=== PATIENT | female | born 1960 | race Caucasian/White ===

== ENCOUNTER 2018-06-15 14:21 | Inpatient (IN) ==
[2018-06-15] MEDS ORDERED: SODIUM CHLORIDE 0.9% 1000ML 500 ML IV ONE (14:39)
--- NOTE | 2018-06-15 14:49 | Emergency Department Note ---
ED Provider Note CHIEF COMPLAINT: Left leg pain/swelling, chest pain HISTORY OF PRESENTING ILLNESS: This is a 58-year-old female with past medical history significant for breast cancer on tamoxifen, who presents to the emergency department with complaint of progressively worsening left leg pain and swelling over the past 2 weeks, and it has gotten significantly worse since yesterday. She states she initially started with a sore spot on her lower leg, she had an ultrasound on 05/31 that did not show any signs of a blood clot. Her doctor told her that she had an inflamed varicose vein and started her on steroids, however she states that she has not gotten any better. The pain and swelling have gotten worse, and she has a red streak going up the inside of the thigh that is warm to the touch, she rates the pain in her leg is 5/10. She denies any fevers or chills. She reports that today when she woke up she noticed that she was having some left-sided chest pain which has been constant, hurts with taking a deep breath, and she rates this as 6/10. She denies any shortness of breath, cough, hemoptysis, dizziness or syncope. She does not take any blood thinners and denies any history of blood clots. She denies any recent long travel or injury to the leg. She denies any other symptoms of headaches, vision changes, neck pain, back pain, abdominal pain, nausea/vomiting, numbness or weakness of the extremities, urinary symptoms, or unusual rash. REVIEW OF SYSTEMS: A complete 10 point review of systems was reviewed with the patient with pertinent positives and negatives as per history of present illness. All else were negative. PAST MEDICAL HISTORY: Breast cancer, status post partial mastectomy of the left breast, status post radiation therapy in October 2017 SOCIAL HISTORY: Lives at home with her , denies tobacco use ALLERGIES: No known allergies PHYSICAL EXAM: CONSTITUTIONAL: Pleasant and cooperative. No acute distress. Well appearing and well nourished. HEENT: Normocephalic, atraumatic. PERRL, EOMI. Pharynx normal. Moist mucous membranes. NECK: Supple, full active range of motion without discomfort. No cervical adenopathy. RESPIRATORY: Slightly diminished in the bases, but otherwise clear to auscultation bilaterally with no wheezing, crackles, rhonchi or stridor. Equal expansion bilaterally. CARDIOVASCULAR: Regular rate and rhythm with no murmurs, rubs or gallops. Normal peripheral perfusion, 2+ distal pulses in all 4 extremities. Edema of the left lower extremity. GASTROINTESTINAL: Soft, nontender, nondistended. No palpable masses or HSM. Bowel sounds present in all quadrants. MUSCULOSKELETAL: Swelling, tenderness, and erythema noted to the left leg. There is an area of erythema and warmth along the left inner thigh, tender to palpation. Full range of motion of all joints without discomfort. INTEGUMENTARY: No rash or other significant dermatologic conditions noted. NEUROLOGIC: Alert and oriented X 4 with normal affect. Normal strength and sensation in all 4 extremities. Normal speech. Normal gait observed. ED COURSE AND MEDICAL DECISION MAKING: CC: Patient presenting with complaint of left leg pain/swelling, chest pain DIFFERENTIAL DIAGNOSIS: Includes, but not limited to DVT, superficial venous thrombophlebitis, cellulitis, musculoskeletal sprain/strain, pulmonary embolism, acute coronary syndrome, costochondritis, pleuritis, pneumonia, among others. INTERPRETATION OF LABS: No leukocytosis, no anemia, normal platelets, no significant electrolyte abnormalities, normal renal function,, normal liver enzymes and lipase. Negative troponin. Coagulation factors pending IMAGING: XR chest 1V portable CLINICAL HISTORY: Left-sided chest pain. COMPARISON STUDY: PET/CT September 24, 2017. FINDINGS: Lung volumes are normal. Lungs are clear. There is no pneumothorax or pleural effusion. There is no evidence for pulmonary edema. Cardiac size is normal. Mediastinal contours are normal. IMPRESSION: No acute cardiopulmonary findings. ----- CT ANGIOGRAPHY OF THE CHEST, PULMONARY EMBOLUS PROTOCOL CLINICAL HISTORY: left chest pain, ?dvt, eval PE COMPARISON STUDY: Chest radiograph performed earlier today. PET/CT September 24, 2017. TECHNIQUE: Following IV administration of 103 mL of Optiray-320, helical axial images of the chest were obtained utilizing the pulmonary embolus protocol. Maximal intensity projections and sagittal and coronal reformats were viewed on an independent 3D workstation. IV contrast was administered without complication. Automated exposure control was utilized for the study. A dose lowering technique was utilized adhering to the principles of ALARA. CT DOSE: 336.80 mGy.cm FINDINGS: There are are multiple emboli within segmental arteries of both lungs, including the lingula, anterior segment of the right upper lobe, right middle lobe, lateral basilar segment of the right lower lobe and posterior basilar segment of the right lower lobe. There is no central pulmonary embolus. No CT evidence for right heart strain. There is no pulmonary infarct. No pneumothorax or pleural effusion is noted. There are no suspicious pulmonary nodules. No consolidation to suggest pneumonia is present. There are post surgical findings within the left breast with left breast thickening. This is likely post therapeutic. No enlarged axillary, mediastinal or hilar lymph nodes are present. There are no suspicious osseous lesions within the bony thorax. Upper abdomen is unremarkable. IMPRESSION: 1. Multiple segmental pulmonary emboli within the lungs, as described above. No CT evidence for right heart strain. No pulmonary infarct. 2. Postsurgical findings within the left breast. No evidence of metastatic disease within the chest. ----- LEFT LOWER EXTREMITY VENOUS DOPPLER CLINICAL HISTORY: swelling, pain, red, eval DVT COMPARISON STUDY: No previous studies for comparison. TECHNIQUE: Sonography of the deep venous system of the left lower extremity was performed. Compression and augmentation were evaluated. FINDINGS: The left common femoral, superficial femoral and popliteal veins were compressible. Augmentation was normal. Flow was shown within the deep calf vessels. Note is made of superficial occlusive thrombus within the left greater saphenous vein that extends to the level of the mid to distal thigh. This extends for approximately 8 cm. This is not within 5 cm of the saphenofemoral junction. IMPRESSION: 1. Superficial thrombus within the left greater saphenous vein. Clot extends for approximately 8 cm. 2. No evidence of deep venous thrombus within the left lower extremity. EKG: Shows normal sinus rhythm with a rate of 69 bpm, normal axis, normal intervals, no ST or T wave abnormalities, no ectopy by my interpretation. No previous EKG available for comparison. MEDICATION RECONCILIATION: I attest that I have personally reviewed the patient's current medication list. INITIAL VITAL SIGNS REVIEW: I reviewed the patient's initial vital signs and interpret them as follows: T: Afebrile; BP: Hypertensive; HR: Within normal limits; RR: Within normal limits; Pulse Ox: Within normal limits on room air. Blood pressure screening: The patient was found to have an elevated blood pre ssure and was referred to the inpatient team for further management. MDM SUMMARY: Patient was evaluated at bedside, history and physical exam performed. Patient is alert and oriented, in no acute distress, resting calmly in the stretcher. Lungs are slightly diminished in the bases, but otherwise clear. No abnormal heart sounds. Moderate swelling noted to the left calf and thigh, tenderness to palpation of the posterior calf and medial thigh. There is an area of erythema along the inner left thigh, warm to the touch and tender to palpation. EKG reviewed at bedside, noting normal sinus rhythm with no acute ischemic changes. Orders were placed at bedside for labs, IV fluid bolus for hydration as a precaution, venous ultrasound of the left lower extremity to evaluate for DVT, chest x-ray, CTA chest to evaluate for PE. The patient was offered something for pain, she declines at this time. Patient discussed with Dr. Livingston, who agrees with my assessment, plan, and disposition. Labs and imaging reviewed as above, labs are unremarkable. Negative troponin. CTA of the chest shows multiple segmental pulmonary emboli within the lungs. Ultrasound of the left leg shows an 8 cm superficial thrombus within the left greater saphenous vein, but no DVT. I spoke on the phone with JEFFREY Tompkins, [facility] hospitalist, who agrees to evaluate the patient for admission. Hypercoagulability lab workup initiated. Subcutaneous Lovenox 1 mg/kg was ordered per recommendation of the hospitalist team. Patient reassessed multiple times throughout ED stay, she has remained hemodynamically stable and afebrile, and appears comfortable. The patient and her were updated on all results and plan for admission, they verbalized understanding and were agreeable to this plan. The patient was stable at time of admission. The chart was completed utilizing [employer] voice recognition software. Grammatical errors, random word insertions, pronoun errors, and incomplete sentences are an occasional consequence of this system due to software limitations, ambient noise, and hardware issues. Any formal questions or concerns about the content, text, or information contained within the body of this dictation should be directly addressed to the nurse practitioner for clarification. Impression & Plan Multiple pulmonary emboli, Acute superficial venous thrombosis of left lower extremity Past Med/Surg History Social History Preferred Language: Romanian Beliefs That Will Affect Care: None Feels Safe at Home: Yes Smoking Status: Never smoker Results & Data Vital Signs Vital Signs - 24 hr 06/15/18 14:24 06/15/18 15:10 06/15/18 15:35 Temperature 36.5 C Temperature Source Oral Sepsis Recent Fever Within 48 Hours No Sepsis New/Unexplained Change in Mental Status No Sepsis Action Taken by Nursing No Action Required Pulse Rate 77 64 Pulse Rate [Apical] 74 Pulse Rate from SpO2 Sensor 74 Respiratory Rate 18 18 19 Respiratory Depth Normal Blood Pressure 138/83 138/77 Blood Pressure [Right Arm] 138/77 Blood Pressure Mean 101 97 Blood Pressure Mean [Right Arm] 97 Pulse Oximetry 98 100 Oxygen Delivery Method Room Air Room Air 06/15/18 15:36 06/15/18 16:54 06/15/18 16:55 Temperature Temperature Source Sepsis Recent Fever Within 48 Hours Sepsis New/Unexplained Change in Mental Status Sepsis Action Taken by Nursing Pulse Rate 66 Pulse Rate [Apical] Pulse Rate from SpO2 Sensor 74 61 67 Respiratory Rate 18 Respiratory Depth Blood Pressure 144/84 H Blood Pressure [Right Arm] Blood Pressure Mean 104 Blood Pressure Mean [Right Arm] Pulse Oximetry 99 97 98 Oxygen Delivery Method Laboratory Data Result diagrams: 06/15/18 15:00 06/15/18 15:00 Lab Results 06/15/18 06/15/18 06/15/18 Range/Units 15:00 15:00 15:12 WBC 6.15 (4.8-10.8) K/uL RBC 4.35 (4.2-5.4) M/uL Hgb 12.6 (12.0-16.0) g/dL POC Hgb 13.3 (12.0-16.0) g/dl Hct 38.7 (37-47) % POC Hct 39 (37-47) % MCV 89.0 (80-100) fL MCH 29.0 (25-34) pg MCHC 32.6 (32-36) g/dL RDW Std Deviation 40.5 (36.4-46.3) fL RDW Coeff of Shiela 12.5 (11.5-14.5) % Plt Count 267 (130-400) K/uL MPV 10.7 H (7.4-10.4) fL Immature Gran % (Auto) 0.2 % Neut % (Auto) 60.5 % Lymph % (Auto) 25.2 % [place] % (Auto) 10.2 % Eos % (Auto) 3.6 % Baso % (Auto) 0.3 % Immature Gran # (Auto) 0.01 (0.00-0.02) K/uL Neut # (Auto) 3.72 (1.4-6.5) K/uL Lymph # (Auto) 1.55 (1.2-3.4) K/uL [place] # (Auto) 0.63 H (0.11-0.59) K/uL Eos # (Auto) 0.22 (0-0.5) K/uL Baso # (Auto) 0.02 (0-0.2) K/uL PT (9.0-12.0) Seconds INR (0.9-1.1) APTT (21.0-31.0) Seconds PTT Ratio POC Sodium 139 (135-144) mEq/L Sodium 140 (136-145) mmol/L POC Potassium 4.0 (3.3-5.0) mEq/L Potassium 4.2 (3.5-5.1) mmol/L POC Chloride 104 (101-112) mEq/L Chloride 108 H (98-107) mmol/L Carbon Dioxide 29 (21-32) mmol/L POC Total CO2 27 (24-31) mEq/l Anion Gap 3.0 (3-11) POC Anion Gap 13.0 L (16-25) mmol/L POC BUN 10 (7-18) mg/dl BUN 10 (7-18) mg/dl Creatinine 0.76 (0.6-1.2) mg/dl POC Creatinine 0.7 (0.6-1.3) mg/dl Est Cr Clr Drug Dosing 88.9 ml/min Est GFR ( Amer) 101.6 Est GFR (Non-Af Amer) 87.7 BUN/Creatinine Ratio 12.9 (10-20) Glucose 78 (70-99) mg/dl POC Glucose (other) 90 (70-99) mg/dl Calcium 8.5 (8.5-10.1) mg/dl POC Ioniz Calcium Diana 1.19 (1.12-1.32) mmol/l Total Bilirubin 0.5 (0.2-1) mg/dl AST 14 L (15-37) U/L ALT 19 (12-78) U/L Alkaline Phosphatase 69 (45-117) U/L Troponin I < 0.015 (0-0.045) ng/ml Total Protein 7.0 (6.4-8.2) gm/dl Albumin 3.3 L (3.4-5.0) gm/dl Globulin 3.7 (2.5-4.0) gm/dl Albumin/Globulin Ratio 0.9 (0.9-2) Lipase 175 (73-393) U/L 06/15/18 Range/Units 16:40 WBC (4.8-10.8) K/uL RBC (4.2-5.4) M/uL Hgb (12.0-16.0) g/dL POC Hgb (12.0-16.0) g/dl Hct (37-47) % POC Hct (37-47) % MCV (80-100) fL MCH (25-34) pg MCHC (32-36) g/dL RDW Std Deviation (36.4-46.3) fL RDW Coeff of Shiela (11.5-14.5) % Plt Count (130-400) K/uL MPV (7.4-10.4) fL Immature Gran % (Auto) % Neut % (Auto) % Lymph % (Auto) % [place] % (Auto) % Eos % (Auto) % Baso % (Auto) % Immature Gran # (Auto) (0.00-0.02) K/uL Neut # (Auto) (1.4-6.5) K/uL Lymph # (Auto) (1.2-3.4) K/uL [place] # (Auto) (0.11-0.59) K/uL Eos # (Auto) (0-0.5) K/uL Baso # (Auto) (0-0.2) K/uL PT 10.1 (9.0-12.0) Seconds INR 1.0 (0.9-1.1) APTT 23.2 (21.0-31.0) Seconds PTT Ratio 0.9 POC Sodium (135-144) mEq/L Sodium (136-145) mmol/L POC Potassium (3.3-5.0) mEq/L Potassium (3.5-5.1) mmol/L POC Chloride (101-112) mEq/L Chloride (98-107) mmol/L Carbon Dioxide (21-32) mmol/L POC Total CO2 (24-31) mEq/l Anion Gap (3-11) POC Anion Gap (16-25) mmol/L POC BUN (7-18) mg/dl BUN (7-18) mg/dl Creatinine (0.6-1.2) mg/dl POC Creatinine (0.6-1.3) mg/dl Est Cr Clr Drug Dosing ml/min Est GFR ( Amer) Est GFR (Non-Af Amer) BUN/Creatinine Ratio (10-20) Glucose (70-99) mg/dl POC Glucose (other) (70-99) mg/dl Calcium (8.5-10.1) mg/dl POC Ioniz Calcium Diana (1.12-1.32) mmol/l Total Bilirubin (0.2-1) mg/dl AST (15-37) U/L ALT (12-78) U/L Alkaline Phosphatase (45-117) U/L Troponin I (0-0.045) ng/ml Total Protein (6.4-8.2) gm/dl Albumin (3.4-5.0) gm/dl Globulin (2.5-4.0) gm/dl Albumin/Globulin Ratio (0.9-2) Lipase (73-393) U/L Administered Medications Ioversol (Optiray 320 125ml) 103 ml IV ONCE PRN PRN Reason: Interaction Checking Stop: 06/19/18 15:32 Last Admin: 06/15/18 15:33 Dose: 103 ml Documented by: [id number] Discontinued Medications Enoxaparin Sodium (Lovenox 1 Mg/Kg Providers Use Dosing Set) 1 mg SQ NOW STA Stop: 06/15/18 16:03 Last Admin: 06/15/18 16:56 Dose: Not Given Documented by: [id number] Enoxaparin Sodium (Lovenox) 80 mg SQ NOW ONE Stop: 06/15/18 16:31 Last Admin: 06/15/18 16:56 Dose: 80 mg Documented by: [id number] Sodium Chloride (Nss 1000ml) 500 mls @ 999 mls/hr IV .Q31M ONE Stop: 06/15/18 15:09 Last Infusion: 06/15/18 15:42 Dose: 0 mls/hr Documented by: [id number] Admin: 06/15/18 15:06 Dose: 999 mls/hr Documented by: [id number] Discharge Plan Visit Data Chief Complaint: Leg Injury/Pain Stated Complaint: LEFT LEG PAIN, WARM TO TOUCH, TENDER ED Provider: Telly Livingston ED Midlevel Provider: Liz Corley Discharge Problem: Multiple pulmonary emboli, Acute superficial venous thrombosis of left lower extremity Forms Stand Alone Forms: My [facility] Prescriptions Prescriptions: No Action aspirin [Adult Aspirin Regimen] 81 mg tablet,delayed release (DR/EC) 81 mg PO DAILY RF: 0 pramipexole [Mirapex] 1 mg tablet 1 mg PO HS RF: 0 tamoxifen 20 mg tablet 20 mg PO DAILY RF: 0 docusate sodium [Colace] 100 mg Capsule 100 mg PO BID RF: 0 cholecalciferol (vitamin D3) [Vitamin D3] 2,000 unit Capsule 2,000 unit PO DAILY RF: 0 calcium carbonate-vitamin D3 [Calcium 600 with Vitamin D3] 600 mg(1,500mg) - 500 unit Capsule 1 cap PO DAILY RF: 0 Referrals Referrals: Imani Ray DO [Primary Care Provider] -
--- NOTE | 2018-06-15 14:56 | XRay Report ---
XR chest 1V portable CLINICAL HISTORY: Left-sided chest pain. COMPARISON STUDY: PET/CT September 24, 2017. FINDINGS: Lung volumes are normal. Lungs are clear. There is no pneumothorax or pleural effusion. The re is no evidence for pulmonary edema. Cardiac size is normal. Mediastinal contours are normal. IMPRESSION: No acute cardiopulmonary findings. Electronically signed by: Armani Escobedo M.D. 06/15/2018 2:54 PM
[2018-06-15 15:27] LABS: iSTAT Creatinine 0.7 mg/dl (0.6-1.3); iSTAT Hemoglobin 13.3 g/dl (12.0-16.0); iSTAT Ionized Calcium 1.19 mmol/l (1.12-1.32)
[2018-06-15] MEDS ORDERED: OPTIRAY 320 125ml IV PRN (15:33)
--- NOTE | 2018-06-15 15:46 | CT Scan Report ---
CT ANGIOGRAPHY OF THE CHEST, PULMONARY EMBOLUS PROTOCOL CLINICAL HISTORY: left chest pain, ?dvt, eval PE COMPARISON STUDY: Chest radiograph performed earlier today. PET/CT September 24, 2017. TECHNIQUE: Following IV administration of 103 mL of Optiray-320, helical axial images of the chest we re obtained utilizing the pulmonary embolus protocol. Maximal intensity projections and sagittal and coronal reformats were viewed on an independent 3D workstation. IV contrast was administered withou t complication. Automated exposure control was utilized for the study. A dose lowering technique wa s utilized adhering to the principles of ALARA. CT DOSE: 336.80 mGy.cm FINDINGS: There are are multiple emboli within segmental arteries of both lungs, including the lingu la, anterior segment of the right upper lobe, right middle lobe, lateral basilar segment of the right lower lobe and posterior basilar segment of the right lower lobe. There is no central pulmonary embo enio. No CT evidence for right heart strain. There is no pulmonary infarct. No pneumothorax or pleural effusion is noted. There are no suspicious pulmonary nodules. No consolidation to suggest pneumonia is present. There are post surgical findings within the left breast with left breast thickening. This is likely post therapeutic. No enlarged axillary, mediastinal or hilar lymph nodes are present. Ther e are no suspicious osseous lesions within the bony thorax. Upper abdomen is unremarkable. IMPRESSION: 1. Multiple segmental pulmonary emboli within the lungs, as described above. No CT evidence for right heart strain. No pulmonary infarct. 2. Postsurgical findings within the left breast. No evidence of metastatic disease within the chest. Electronically signed by: Armani Escobedo M.D. 06/15/2018 3:45 PM
[2018-06-15] MEDS ORDERED: ENOXAPARIN 1 MG/KG SQ STA (16:02)
[2018-06-15 16:21] LABS: Basophils # (auto) 0.02 K/uL (0-0.2); Basophils % (auto) 0.3 %; Eosinophils # (auto) 0.22 K/uL (0-0.5); Eosinophils % (auto) 3.6 %; Hematocrit (blood only) 38.7 % (37-47); Hemoglobin 12.6 g/dL (12.0-16.0); Immature Granulocytes # (auto) 0.01 K/uL (0.00-0.02); Immature Granulocytes % (auto) 0.2 %; Lymphocytes # (auto) 1.55 K/uL (1.2-3.4); Lymphocytes % (auto) 25.2 %; Mean Corpuscular Hgb Conc 32.6 g/dL (32-36); Mean Platelet Volume 10.7 fL (7.4-10.4); Monocytes # (auto) 0.63 K/uL (0.11-0.59); Monocytes % (auto) 10.2 %; Neutrophils # (auto) 3.72 K/uL (1.4-6.5); Neutrophils % (auto) 60.5 %; Platelet Count 267 K/uL (130-400); RDW Coefficient of Variation 12.5 % (11.5-14.5); RDW Standard Deviation 40.5 fL (36.4-46.3); Red Blood Count 4.35 M/uL (4.2-5.4); White Blood Count 6.15 K/uL (4.8-10.8)
--- NOTE | 2018-06-15 16:21 | Ultrasound Report ---
LEFT LOWER EXTREMITY VENOUS DOPPLER CLINICAL HISTORY: swelling, pain, red, eval DVT COMPARISON STUDY: No previous studies for comparison. TECHNIQUE: Sonography of the deep venous system of the left lower extremity was performed. Compressi on and augmentation were evaluated. FINDINGS: The left common femoral, superficial femoral and popliteal veins were compressible. Augmen tation was normal. Flow was shown within the deep calf vessels. Note is made of superficial occlusive thrombus within the left greater saphenous vein that extends to the level of the mid to distal thigh . This extends for approximately 8 cm. This is not within 5 cm of the saphenofemoral junction. IMPRESSION: 1. Superficial thrombus within the left greater saphenous vein. Clot extends for approximately 8 cm. 2. No evidence of deep venous thrombus within the left lower extremity. Electronically signed by: Armani Escobedo M.D. 06/15/2018 4:19 PM
[2018-06-15] MEDS ORDERED: ENOXAPARIN 80 MG/0.8 ML SYR SQ ONE (16:30)
[2018-06-15 16:50] LABS: Alanine Aminotransferase 19 U/L (12-78); Albumin Globulin Ratio 0.9 (0.9-2); Albumin Level 3.3 gm/dl (3.4-5.0); Alkaline Phosphatase 69 U/L (45-117); BUN Creatinine Ratio 12.9 (10-20); Bilirubin,Total 0.5 mg/dl (0.2-1); Blood Urea Nitrogen 10 mg/dl (7-18); Calcium 8.5 mg/dl (8.5-10.1); Carbon Dioxide 29 mmol/L (21-32); Chloride 108 mmol/L (98-107); Creatinine Clr Calc Pharmacy 88.9 ml/min; Est GFR (African American) 101.6; Est GFR (Non-African American) 87.7; Globulin 3.7 gm/dl (2.5-4.0); Glucose 78 mg/dl (70-99); Troponin I < 0.015 ng/ml (0-0.045)
[2018-06-15 17:17] LABS: Aspartate Aminotransferase 14 U/L (15-37); Potassium 4.2 mmol/L (3.5-5.1); Sodium 140 mmol/L (136-145)
[2018-06-15 17:22] LABS: Partial Thromboplastin Ratio 0.9; Partial Thromboplastin Time 23.2 Seconds (21.0-31.0); Prothrombin Time 10.1 Seconds (9.0-12.0)
--- NOTE | 2018-06-15 18:05 | History & Physical Report ---
Date of Service June 15, 2018 Assessment & Plan (1) Multiple pulmonary emboli: (2) DVT (deep venous thrombosis): -Admit to [facility] telemetry -Patient presenting to the ED for evaluation of left lower extremity edema and pain that began approximately 2 weeks ago; patient was evaluated as an outpatient and had a negative venous Doppler ultrasound on 05/31, was given a course of prednisone on 06/05 for a suspected superficial phlebitis -In the ED, CTA chest demonstrates multiple segmental pulmonary emboli and left lower extremity venous Doppler shows a superficial thrombus in the left greater saphenous vein -Risk factors include: History of breast cancer currently on tamoxifen, family history of blood clots -Patient remains hemodynamically stable, saturating well on room air -Received full dose Lovenox in the ED, will continue with 1 mg/kg every 12 hours -Hypercoagulable panel obtained -Case was discussed with Dr. Riggs, hematology/oncology, who advises stopping tamoxifen and that since patient's cancer is currently not active, oral anticoagulation could be used (3) Malignant neoplasm of upper-outer quadrant of left breast in female, estrogen receptor positive: -S/P left partial mastectomy and radiation -Holding tamoxifen as above -Outpatient oncology follow-up (patient follows with Dr. Cruz) (4) RLS (restless legs syndrome): -Continue pramipexole (5) DVT prophylaxis: -Receiving full dose Lovenox as above History of Present Illness Chief Complaint: Left leg pain Primary Care Provider: Imani Ray DO 58-year-old female who presents the ED for evaluation of left leg pain and swelling. Patient reports she developed pain and swelling in her left ankle and garcia approximately 2 weeks ago. Patient was seen in outpatient clinic and ultrasound Doppler was obtained on 05/31 that was negative for DVT. Patient reports her symptoms persisted and was seen again in the outpatient clinic on 06/05 and was given prednisone prescription for suspected superficial phlebitis. Patient reports the edema has been progressively getting worse and the pain has moved up to her leg to below her left knee, in her left knee, and inner part of her left thigh. Patient reports when she woke up this morning she was having left-sided chest pain. She reports his pain is been persistent throughout the day. She reports the pain at its worse a #6/10. Pain is worse with a deep breath. She denies shortness of breath and palpitations. No lightheadedness, dizziness, diaphoresis, syncopal events. She denies abdominal pain, nausea, vomiting, diarrhea. No other recent illnesses, fevers, chills. She denies any urinary symptoms. Patient denies any recent travel. In the ED, CTA chest is demonstrating multiple pulmonary emboli. Venous Doppler demonstrates clot within the left greater saphenous vein. Patient is hemodynamically stable and saturating well on room air. Hypercoagulable panel was obtained and patient was given a dose of full dose Lovenox. Allergies Allergy/AdvReac Type Severity Reaction Status Date / Time No Known Allergies Allergy Verified 06/15/18 15:36 Home Medications Home Medications Medication Instructions Recorded Confirmed Type aspirin 81 mg tablet,delayed 81 mg PO DAILY 06/11/18 06/15/18 History release pramipexole 1 mg tablet 1 mg PO HS tab 06/11/18 06/15/18 History tamoxifen 20 mg tablet 20 mg PO DAILY 06/11/18 06/15/18 History calcium carbonate-vitamin D3 1 cap PO DAILY 06/15/18 06/15/18 History [Calcium 600 with Vitamin D3] cholecalciferol (vitamin D3) 2,000 unit PO DAILY 06/15/18 06/15/18 History [Vitamin D3] docusate sodium [Colace] 100 mg PO BID 06/15/18 06/15/18 History Past Med/Surg History Medical History RLS (restless legs syndrome) (Chronic) Malignant neoplasm of upper-outer quadrant of left breast in female, estrogen receptor positive (Chronic 08/14/17) "Abnormal left breast mammogram Status post stereotactic core needle biopsy August 14, 2017 Invasive lobular carcinoma, grade 2 Estrogen receptor positive, progesterone receptor negative, HER-2/jasmine negative Status post needle localization lumpectomy and sentinel lymph node biopsy September 05, 2017 Stage pT2 pN1mi M0 Oncotype DX score of 11 Status post completion of radiation therapy November 09, 2017. She received 5130 cGy utilizing hypo-fractionation." Surgical History History of total left hip replacement (Chronic) S/P KERRI (total abdominal hysterectomy) (Chronic) History of partial mastectomy of left breast (Chronic) H/O tubal ligation (Chronic) History of carpal tunnel surgery of right wrist (Chronic) Family History Mother Clotting disorder Father Clotting disorder Social History Communication Ability: Effective Packing Inspector Required: No Beliefs That Will Affect Care: None Current Living Situation: Spouse Other Information That Helps Us Care for You: No Feels Safe at Home: Yes Safety Concerns: Feels Safe At This Time Smoking Status: Former smoker Hx Alcohol Use: No Hx Substance Use: No Review of Systems ROS per HPI, all other systems reviewed and negative Physical Exam Vital Signs (Past 24 Hours): Last Vital Signs Temp 36.5 C 06/15/18 14:24 Pulse 64 06/15/18 17:52 Resp 18 06/15/18 17:52 BP 132/79 06/15/18 17:52 Pulse Ox 100 06/15/18 17:52 Constitutional: WD/WN, vitals as above Eyes: PERRL, conjunctivae normal, anicteric sclerae ENMT: external ear and nose normal, oropharynx normal Respiratory: normal respiratory effort, lungs clear to auscultation Cardiovascular: Rate/Rhythm: regular rate and regular rhythm Vessels: normal peripheral pulses Extremities: + edema (+1 - +2 edema LLE) Gastrointestinal (Abdomen): normal bowel sounds, soft, nontender, no hepatosplenomegaly Musculoskeletal: no cyanosis or clubbing, extremities motor strength 5/5 Extremities: + lower leg abnormality (Edema noted to left lower extremity, erythema and tenderness noted along medial aspect left lower thigh and knee) Left Skin: no rashes, warm and dry Neurologic: PERRL, EOMI, accommodation nl, no face palsy, no dysarthria Psychiatric: A+Ox3, euthymic affect Results & Data Laboratory Results Laboratory Last Values WBC 6.15 K/uL (4.8-10.8) 06/15/18 15:00 RBC 4.35 M/uL (4.2-5.4) 06/15/18 15:00 Hgb 12.6 g/dL (12.0-16.0) 06/15/18 15:00 POC Hgb 13.3 g/dl (12.0-16.0) 06/15/18 15:12 Hct 38.7 % (37-47) 06/15/18 15:00 POC Hct 39 % (37-47) 06/15/18 15:12 MCV 89.0 fL (80-100) 06/15/18 15:00 MCH 29.0 pg (25-34) 06/15/18 15:00 MCHC 32.6 g/dL (32-36) 06/15/18 15:00 RDW Std Deviation 40.5 fL (36.4-46.3) 06/15/18 15:00 RDW Coeff of Shiela 12.5 % (11.5-14.5) 06/15/18 15:00 Plt Count 267 K/uL (130-400) 06/15/18 15:00 MPV 10.7 fL (7.4-10.4) H 06/15/18 15:00 Immature Gran % (Auto) 0.2 % 06/15/18 15:00 Neut % (Auto) 60.5 % 06/15/18 15:00 Lymph % (Auto) 25.2 % 06/15/18 15:00 Dane % (Auto) 10.2 % 06/15/18 15:00 Eos % (Auto) 3.6 % 06/15/18 15:00 Baso % (Auto) 0.3 % 06/15/18 15:00 Immature Gran # (Auto) 0.01 K/uL (0.00-0.02) 06/15/18 15:00 Neut # (Auto) 3.72 K/uL (1.4-6.5) 06/15/18 15:00 Lymph # (Auto) 1.55 K/uL (1.2-3.4) 06/15/18 15:00 Dane # (Auto) 0.63 K/uL (0.11-0.59) H 06/15/18 15:00 Eos # (Auto) 0.22 K/uL (0-0.5) 06/15/18 15:00 Baso # (Auto) 0.02 K/uL (0-0.2) 06/15/18 15:00 PT 10.1 Seconds (9.0-12.0) 06/15/18 16:40 INR 1.0 (0.9-1.1) 06/15/18 16:40 APTT 23.2 Seconds (21.0-31.0) 06/15/18 16:40 PTT Ratio 0.9 06/15/18 16:40 POC Sodium 139 mEq/L (135-144) 06/15/18 15:12 Sodium 140 mmol/L (136-145) 06/15/18 15:00 POC Potassium 4.0 mEq/L (3.3-5.0) 06/15/18 15:12 Potassium 4.2 mmol/L (3.5-5.1) 06/15/18 15:00 POC Chloride 104 mEq/L (101-112) 06/15/18 15:12 Chloride 108 mmol/L (98-107) H 06/15/18 15:00 Carbon Dioxide 29 mmol/L (21-32) 06/15/18 15:00 POC Total CO2 27 mEq/l (24-31) 06/15/18 15:12 Anion Gap 3.0 (3-11) 06/15/18 15:00 POC Anion Gap 13.0 mmol/L (16-25) L 06/15/18 15:12 POC BUN 10 mg/dl (7-18) 06/15/18 15:12 BUN 10 mg/dl (7-18) 06/15/18 15:00 Creatinine 0.76 mg/dl (0.6-1.2) 06/15/18 15:00 POC Creatinine 0.7 mg/dl (0.6-1.3) 06/15/18 15:12 Est Cr Clr Drug Dosing 88.9 ml/min 06/15/18 15:00 Est GFR ( Amer) 101.6 06/15/18 15:00 Est GFR (Non-Af Amer) 87.7 06/15/18 15:00 BUN/Creatinine Ratio 12.9 (10-20) 06/15/18 15:00 Glucose 78 mg/dl (70-99) 06/15/18 15:00 POC Glucose (other) 90 mg/dl (70-99) 06/15/18 15:12 Calcium 8.5 mg/dl (8.5-10.1) 06/15/18 15:00 POC Ioniz Calcium Diana 1.19 mmol/l (1.12-1.32) 06/15/18 15:12 Total Bilirubin 0.5 mg/dl (0.2-1) 06/15/18 15:00 AST 14 U/L (15-37) L 06/15/18 15:00 ALT 19 U/L (12-78) 06/15/18 15:00 Alkaline Phosphatase 69 U/L (45-117) 06/15/18 15:00 Troponin I < 0.015 ng/ml (0-0.045) 06/15/18 15:00 Total Protein 7.0 gm/dl (6.4-8.2) 06/15/18 15:00 Albumin 3.3 gm/dl (3.4-5.0) L 06/15/18 15:00 Globulin 3.7 gm/dl (2.5-4.0) 06/15/18 15:00 Albumin/Globulin Ratio 0.9 (0.9-2) 06/15/18 15:00 Lipase 175 U/L (73-393) 06/15/18 15:00 Diagnostic Findings CTA CHEST IMPRESSION: 1. Multiple segmental pulmonary emboli within the lungs, as described above. No CT evidence for right heart strain. No pulmonary infarct. 2. Postsurgical findings within the left breast. No evidence of metastatic disease within the chest. CXR IMPRESSION: No acute cardiopulmonary findings. LLE VENOUS DOPPLER IMPRESSION: 1. Superficial thrombus within the left greater saphenous vein. Clot extends for approximately 8 cm. 2. No evidence of deep venous thrombus within the left lower extremity. Code Status & VTE Plan VTE Prophylaxis Plan VTE Prophylaxis will be ordered: Yes Supervising Physician Co-Signing Physician Notes HISTORY: Record reviewed. Patient interviewed and examined. Care coordinated with JEFFREY Tompkins. Please refer to her documentation for patient's history. Briefly, 58 YO F with history of breast Ca, on tamoxifen. Presented to ED with LLE pain and left pleuritic chest pain. Family history of DVT- grandmother + both parents. EXAM: General- no distress Lungs- clear to auscultation; no pleural rub; no respiratory distress Cardiovascular- RRR; no murmur; no gallop; no JVD; no pretibial edema Abdomen- + bowel sounds, soft, nontender Extremities- no cyanosis; erythema and tenderness left medial thigh Neuro- alert, oriented Skin- warm & dry DATA: Chest x-ray negative. CTA chest- multiple segmental pulmonary emboli. Venous duplex left lower extremity- thrombus left great saphenous vein. EKG performed at 1456 reviewed and demonstrated NSR at 69 / minute, low voltage QRS, no acute changes. ASSESSMENT AND PLAN: Multiple pulmonary emboli, thrombus left greater saphenous vein. History of breast Ca on tamoxifen. Family history of VTE. Hemodynamically stable. Oxygenating well. Started on anticoagulation with enoxaparin; anticipate transition to DOAC. Stop tamoxifen. Work up for hypercoagulable conditions ordered. Doubt RV strain, but will check echo in light of history of breast Ca + low voltage QRS on EKG. Please refer to DILLON Abel's documentation for discussion of other issues.
[2018-06-15] MEDS ORDERED: ACETAMINOPHEN 325 MG TAB PO PRN (18:25)
[2018-06-15] MEDS: PRAMIPEXOLE DIHYDROCHLO 0.5 MG TAB PO SCH (20:12)
[2018-06-15] MEDS: DOCUSATE SODIUM 100 MG CAP PO SCH (20:12)
[2018-06-16] MEDS ORDERED: ENOXAPARIN 80 MG/0.8 ML SYR SQ SCH (05:00)
[2018-06-16] MEDS: DOCUSATE SODIUM 100 MG CAP PO SCH ×2 (07:42→20:23)
[2018-06-16] MEDS: CHOLECALCIFEROL 1,000 UNITS TAB PO SCH (07:42)
[2018-06-16] MEDS: CALCIUM 600MG + VIT D 400 IU TAB PO SCH (07:42)
[2018-06-16] MEDS: ASPIRIN 81 MG ECTAB PO SCH (07:42)
[2018-06-16 08:29] LABS: Hematocrit (blood only) 36.4 % (37-47); Hemoglobin 11.8 g/dL (12.0-16.0); Mean Corpuscular Hgb Conc 32.4 g/dL (32-36); Mean Corpuscular Volume 89.4 fL (80-100); Mean Platelet Volume 10.3 fL (7.4-10.4); Platelet Count 238 K/uL (130-400); RDW Coefficient of Variation 12.6 % (11.5-14.5); RDW Standard Deviation 40.2 fL (36.4-46.3); Red Blood Count 4.07 M/uL (4.2-5.4)
[2018-06-16 09:03] LABS: BUN Creatinine Ratio 11.8 (10-20); Calcium 8.2 mg/dl (8.5-10.1); Creatinine Clr Calc Pharmacy 99.7 ml/min; Est GFR (African American) 108.5; Est GFR (Non-African American) 93.6; Potassium 3.8 mmol/L (3.5-5.1)
[2018-06-16] MEDS ORDERED: PERFLUTREN LIPID MICROSPHERE (DEFINITY) IV ONE (12:58)
[2018-06-16] MEDS ORDERED: ENOXAPARIN 100 MG/1ML SYR SQ SCH (14:15)
--- NOTE | 2018-06-16 19:08 | Hospitalist Progress Note ---
Date of Service June 16, 2018 Assessment & Plan (1) Multiple pulmonary emboli: Presented with bilateral segmental pulmonary emboli + thrombus left greater saphenous vein. Taking tomoxifen for breast Ca. Strong family history of thromboembolic disease. Anticoagulation initiated with SQ enoxaparin. Anticipate transition to DOAC. Hypercoagulable workup underway. Tamoxifen discontinued. Long-term management per Hematology/Oncology. Present on Admission?: Yes (2) Thrombosis of lower extremity: Thrombus left greater saphenous vein. Management as discussed above. Present on Admission?: Yes (3) Malignant neoplasm of upper-outer quadrant of left breast in female, estrogen receptor positive: Taking tomoxifen for breast Ca. Tamoxifen discontinued. Long-term management per Hematology/Oncology. (4) DVT prophylaxis: Receiving enoxaparin for acute VTE as discussed above. (5) Discharge planning issues: Anticipated discharge to home. Medical follow-up with Dr. Ray. Hematology/Oncology follow-up with Dr. Cruz. Subjective Recheck for pulmonary emboli. Patient seen in their room around 1020. Feels better. Less left-sided chest pain with deep inspiration. No cough or hemoptysis. No SOB. Less pain left medial thigh. Review of Systems: Constitutional- no fever. Cardiac- no chest pain. Pulmonary- as noted above GI- no nausea, vomiting, diarrhea, melena, hematochezia. - no urinary symptoms. Otherwise, as noted above. Physical Exam Vital Signs (Past 24 Hours): Last Vital Signs Temp 36.3 C L 06/16/18 17:04 Pulse 76 06/16/18 17:04 Resp 16 06/16/18 17:04 BP 124/84 06/16/18 17:04 Pulse Ox 100 06/16/18 17:04 Physical Exam: General- no distress Lungs- clear to auscultation; no pleural rub; no respiratory distress Cardiovascular- RRR; no murmur; no gallop; no JVD; no pretibial edema Abdomen- + bowel sounds, soft, nontender Extremities- no cyanosis; erythema and tenderness left medial thigh Neuro- alert, oriented Skin- warm & dry Results & Data Laboratory Results Laboratory Results - last 24 hr 06/16/18 06/16/18 07:53 07:53 WBC 5.50 RBC 4.07 L Hgb 11.8 L Hct 36.4 L MCV 89.4 MCH 29.0 MCHC 32.4 RDW Std Deviation 40.2 RDW Coeff of Shiela 12.6 Plt Count 238 MPV 10.3 Sodium 142 Potassium 3.8 Chloride 109 H Carbon Dioxide 29 Anion Gap 3.0 BUN 9 Creatinine 0.72 Est Cr Clr Drug Dosing 99.7 Est GFR ( Amer) 108.5 Est GFR (Non-Af Amer) 93.6 BUN/Creatinine Ratio 11.8 Glucose 90 Calcium 8.2 L
[2018-06-16] MEDS: PRAMIPEXOLE DIHYDROCHLO 0.5 MG TAB PO SCH (20:23)
[2018-06-16] MEDS ORDERED: ENOXAPARIN 100 MG/1ML SYR SQ ONE (23:00)
[2018-06-17] MEDS ORDERED: MoRPHine SULFATE 2 MG/ML CARP IV STA (04:10)
[2018-06-17] MEDS ORDERED: MoRPHine SULFATE 2 MG/ML CARP ONE (04:16)
[2018-06-17] MEDS: CALCIUM 600MG + VIT D 400 IU TAB PO SCH (08:40)
[2018-06-17] MEDS: ASPIRIN 81 MG ECTAB PO SCH (08:40)
[2018-06-17] MEDS: DOCUSATE SODIUM 100 MG CAP PO SCH ×2 (08:40→21:39)
[2018-06-17] MEDS: CHOLECALCIFEROL 1,000 UNITS TAB PO SCH (08:40)
[2018-06-17] MEDS ORDERED: APIXABAN 5 MG TABLET PO SCH (09:00)
[2018-06-17] MEDS: ENOXAPARIN 100 MG/1ML SYR SQ SCH ×2 (09:20→21:37)
--- NOTE | 2018-06-17 19:22 | Hospitalist Progress Note ---
Date of Service June 17, 2018 Assessment & Plan (1) Multiple pulmonary emboli: Presented with bilateral segmental pulmonary emboli + thrombus left greater saphenous vein. Taking tomoxifen for breast Ca. Strong family history of thromboembolic disease. Anticoagulation initiated with SQ enoxaparin. Anticipate transition to DOAC. Hypercoagulable workup underway. Tamoxifen discontinued. Long-term management per Hematology/Oncology. (2) Thrombosis of lower extremity: Thrombus left greater saphenous vein. Management as discussed above. (3) Malignant neoplasm of upper-outer quadrant of left breast in female, estrogen receptor positive: Taking tomoxifen for breast Ca. Tamoxifen discontinued. Long-term management per Hematology/Oncology. (4) DVT prophylaxis: Receiving enoxaparin for acute VTE as discussed above. (5) Discharge planning issues: Anticipated discharge to home. Medical follow-up with Dr. Ray. Hematology/Oncology follow-up with Dr. Cruz. Subjective Recheck for pulmonary emboli. Patient seen in their room around 1310. Had an episode of left anterior pleuritic chest pain this morning- resolved. No cough or hemoptysis. No SOB. Less erythema and pain left medial thigh. Review of Systems: Constitutional- no fever. Cardiac- no anginal symptoms Pulmonary- as noted above GI- no nausea, vomiting, diarrhea, melena, hematochezia. - no urinary symptoms. Otherwise, as noted above. Physical Exam Vital Signs (Past 24 Hours): Last Vital Signs Temp 36.7 C 06/17/18 15:42 Pulse 78 06/17/18 15:42 Resp 79 H 06/17/18 15:42 BP 103/67 06/17/18 15:42 Pulse Ox 96 06/17/18 15:42 Physical Exam: General- no distress Lungs- clear to auscultation; no pleural rub; no respiratory distress Cardiovascular- RRR; no murmur; no gallop; no JVD; no pretibial edema Abdomen- + bowel sounds, soft, nontender Extremities- no cyanosis; less erythema and tenderness left medial thigh Neuro- alert, oriented Skin- warm & dry Results & Data Laboratory Results Laboratory Results - last 24 hr 06/17/18 06/17/18 05:01 09:57 Troponin I < 0.015 < 0.015
[2018-06-17] MEDS: PRAMIPEXOLE DIHYDROCHLO 0.5 MG TAB PO SCH (21:37)
[2018-06-17 23:23] VITALS: TEMP 98.1
[2018-06-18 05:47] LABS: Hematocrit (blood only) 35.2 % (37-47); Hemoglobin 11.3 g/dL (12.0-16.0); Mean Corpuscular Hgb Conc 32.1 g/dL (32-36); Mean Corpuscular Volume 89.1 fL (80-100); Mean Platelet Volume 10.1 fL (7.4-10.4); Platelet Count 224 K/uL (130-400); RDW Coefficient of Variation 12.3 % (11.5-14.5); RDW Standard Deviation 39.7 fL (36.4-46.3); Red Blood Count 3.95 M/uL (4.2-5.4); White Blood Count 6.36 K/uL (4.8-10.8)
[2018-06-18 06:27] LABS: Creatinine Clr Calc Pharmacy 96.9 ml/min; Est GFR (Non-African American) 90.6
[2018-06-18 07:50] VITALS: BP 120/71; PULSE 62; O2SAT 98
[2018-06-18] MEDS: ASPIRIN 81 MG ECTAB PO SCH (08:19)
[2018-06-18] MEDS: CALCIUM 600MG + VIT D 400 IU TAB PO SCH (08:19)
[2018-06-18] MEDS: CHOLECALCIFEROL 1,000 UNITS TAB PO SCH (08:19)
[2018-06-18] MEDS: DOCUSATE SODIUM 100 MG CAP PO SCH (08:21)
[2018-06-18] MEDS ORDERED: APIXABAN 5 MG TABLET PO SCH (09:00)
--- NOTE | 2018-06-18 10:05 | Hospitalist Progress Note ---
Date of Service June 18, 2018 Assessment & Plan (1) Multiple pulmonary emboli: Presented with bilateral segmental pulmonary emboli + thrombus left greater saphenous vein. Was taking tomoxifen for breast Ca. Tamoxifen discontinued. Strong family history of thromboembolic disease. Anticoagulation initiated with SQ enoxaparin. Transitioned to oral anticoagulation with apixapan- 10 mg BID x 7 days, then 5 mg BID. Hypercoagulable workup underway. Duration of anticoagulation to be determined. Long-term management per Hematology/Oncology. (2) Thrombosis of lower extremity: Thrombus left greater saphenous vein. Management as discussed above. (3) Malignant neoplasm of upper-outer quadrant of left breast in female, estrogen receptor positive: Taking tomoxifen for breast Ca. Tamoxifen discontinued. Long-term management per Hematology/Oncology. (4) DVT prophylaxis: Received enoxaparin for acute VTE as discussed above. (5) Discharge planning issues: Discharged to home. Medical follow-up with Dr. Ray. Hematology/Oncology follow-up with Dr. Cruz. Subjective Recheck for pulmonary emboli. Doing well. Minimal left anterior chest discomfort with inspiration. No cough or hemoptysis. No SOB. Less erythema and pain left medial thigh. No bleeding or bruising. Physical Exam Vital Signs (Past 24 Hours): Last Vital Signs Temp 36.7 C 06/18/18 07:49 Pulse 62 06/18/18 07:49 Resp 18 06/18/18 07:49 BP 120/71 06/18/18 07:49 Pulse Ox 98 06/18/18 07:49 Physical Exam: General- no distress Lungs- clear to auscultation; no pleural rub; no respiratory distress Cardiovascular- RRR; no murmur; no gallop; no JVD; no pretibial edema Abdomen- + bowel sounds, soft, nontender Extremities- no cyanosis; less erythema and tenderness left medial thigh Neuro- alert, oriented Skin- warm & dry
--- NOTE | 2018-06-19 09:23 | Discharge Summary ---
Date of Service Date of admission: 06/15/18 Date of discharge: 06/18/18 Admission HPI Per Admitting Provider 58-year-old female who presents the ED for evaluation of left leg pain and swelling. Patient reports she developed pain and swelling in her left ankle and garcia approximately 2 weeks ago. Patient was seen in outpatient clinic and ultrasound Doppler was obtained on 05/31 that was negative for DVT. Patient reports her symptoms persisted and was seen again in the outpatient clinic on 06/05 and was given prednisone prescription for suspected superficial phlebitis. Patient reports the edema has been progressively getting worse and the pain has moved up to her leg to below her left knee, in her left knee, and inner part of her left thigh. Patient reports when she woke up this morning she was having left-sided chest pain. She reports his pain is been persistent throughout the day. She reports the pain at its worse a #6/10. Pain is worse with a deep breath. She denies shortness of breath and palpitations. No lightheadedness, dizziness, diaphoresis, syncopal events. She denies abdominal pain, nausea, vomiting, diarrhea. No other recent illnesses, fevers, chills. She denies any urinary symptoms. Patient denies any recent travel. In the ED, CTA chest is demonstrating multiple pulmonary emboli. Venous Doppler demonstrates clot within the left greater saphenous vein. Patient is hemodynamically stable and saturating well on room air. Hypercoagulable panel was obtained and patient was given a dose of full dose Lovenox. Admission Exam Per Admitting Provider Constitutional: WD/WN, vitals as above Eyes: PERRL, conjunctivae normal, anicteric sclerae ENMT: external ear and nose normal, oropharynx normal Respiratory: normal respiratory effort, lungs clear to auscultation Cardiovascular: Rate/Rhythm: regular rate and regular rhythm Vessels: normal peripheral pulses Extremities: + edema (+1 - +2 edema LLE) Gastrointestinal (Abdomen): normal bowel sounds, soft, nontender, no hepatosplenomegaly Musculoskeletal: no cyanosis or clubbing, extremities motor strength 5/5 Extremities: + lower leg abnormality (Edema noted to left lower extremity, erythema and tenderness noted along medial aspect left lower thigh and knee) Left Skin: no rashes, warm and dry Neurologic: PERRL, EOMI, accommodation nl, no face palsy, no dysarthria Psychiatric: A+Ox3, euthymic affect Principal Diagnosis pulmonary emboli thrombosis left greater saphenous vein breast cancer Discharge Data Allergies Allergy/AdvReac Type Severity Reaction Status Date / Time No Known Allergies Allergy Verified 06/15/18 15:36 Consultations 06/15/18 16:08 ED Decision to Admit Stat 06/15/18 18:25 Consult Case Management - Discharge Planning Routine Ordered Studies 06/15/18 14:39 CT angio chest PE protocol Stat US venous doppler LE LT Stat Hospital Course (1) Multiple pulmonary emboli: Presented with bilateral segmental pulmonary emboli + thrombus left greater saphenous vein. Was taking tomoxifen for breast Ca. Tamoxifen discontinued. Strong family history of thromboembolic disease. Anticoagulation initiated with SQ enoxaparin. Transitioned to oral anticoagulation with apixapan- 10 mg BID x 7 days, then 5 mg BID. Hypercoagulable workup underway. Duration of anticoagulation to be determined. Long-term management per Hematology/Oncology. (2) Thrombosis of lower extremity: Thrombus left greater saphenous vein. Management as discussed above. (3) Malignant neoplasm of upper-outer quadrant of left breast in female, estrogen receptor positive: Taking tomoxifen for breast Ca. Tamoxifen discontinued. Long-term management per Hematology/Oncology. (4) DVT prophylaxis: Received enoxaparin for acute VTE as discussed above. (5) Discharge planning issues: Discharged to home. Medical follow-up with Dr. Ray. Hematology/Oncology follow-up with Dr. Cruz. Total Time Total Time Spent Total Time Spent (In Minutes): 35 Discharge Plan Discharge Items Patient Disposition: Home - Self-Care Reason For Visit: blood clots in lungs and left leg Discharge Diagnosis: blood clots in lungs and left leg Condition: Good Discharge Goals: Decrease discomfort and Improve disease control Activity: Per 'Additional Instructions' section Activity Comment: gradually increase activity as tolerated Non-emergency contact: Primary Care Provider, Hospitalist and Oncologist Call non-emergency contact if: you have any medication questions, your symptoms worsen and your temperature is above 101 Follow-up/Referrals: Zaid Cruz MD [Surgeon] - (Office will contact you with appointment.) Imani Ray DO [Primary Care Provider] - (06/21/2018 11:00 AM Vane Foreman MD (covering for Dr. Davila)) Diet: Heart Healthy Addtl Provider Instructions: OTHER INSTRUCTIONS: Keep left leg elevated until swelling better. Apply warm compresses to left thigh 4 times a day until better. You will be taking a blood thinner called Eliquis. Dose is 10 mg twice a day for 7 days, then 5 mg twice a day. Dr. Cruz will let you know how long you should take it. Dr. Cruz will also give you guidance regarding treatment of your breast cancer. Several tests were done related to blood clotting disorders that may be hereditary. The results are pending. Dr. Cruz will be able to review results when you see her. OK to take Tylenol if need for pain as directed. Avoid aspirin and anti-inflammatory medications like ibuprofen (Motrin, Advil, and other brands) and naproxen (Aleve). Seek medical attention if you have: * temperature above 101 * chest pain or trouble breathing * abdominal pain, nausea, vomiting * diarrhea, dark stools or bloody stools * any unanswered questions or concerns Call 911 if symptoms are severe. Call if you have any questions or problems. My cell # is [phone]. You can also reach a [facility] hospitalist on duty at [facility] 24 hours a day by calling [phone]. Prescriptions: New Eliquis 5 mg Tablet 10 mg PO BID Qty: 13 RF: 0 Eliquis 5 mg tablet 5 mg PO BID Qty: 60 RF: 5 acetaminophen 500 mg tablet 1,000 mg PO Q8H PRN (Reason: fever or pain) Qty: 60 RF: 0 Continued pramipexole [Mirapex] 1 mg tablet 1 mg PO HS RF: 0 docusate sodium [Colace] 100 mg Capsule 100 mg PO BID RF: 0 cholecalciferol (vitamin D3) [Vitamin D3] 2,000 unit Capsule 2,000 unit PO DAILY RF: 0 calcium carbonate-vitamin D3 [Calcium 600 with Vitamin D3] 600 mg(1,500mg) - 500 unit Capsule 1 cap PO DAILY RF: 0 Discontinued aspirin [Adult Aspirin Regimen] 81 mg tablet,delayed release (DR/EC) 81 mg PO DAILY RF: 0 tamoxifen 20 mg tablet 20 mg PO DAILY RF: 0 Stand-Alone Forms: My [facility], Work/School Release (Inpt) Ann Marie/Other Patient Handouts: Apixaban Oral tablet Discharge Orders: Discharge Order (Routine); Ordered 06/18/18 Ordered By: Telly Guevara Admission Data Admit Date/Time: 06/15/18 16:41 Attending Provider: Telly Guevara Admit Provider: Telly Guevara Primary Care Provider: Imani Ray Other Providers: Telly Guevara Service: Telemetry Medical Other Interventions: Discharge Summary Assessment (RN) Last Done: 06/18/18 10:48 Pending Studies at Discharge: Yes Studies:: protein C 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
[2018-06-21 23:06] LABS: Anti Cardiolipin Ab IgG <14 GPL (< = 14); Anti Cardiolipin Ab IgM <12 MPL (< = 12); Anti-Thrombin III Activity 102 % activity (80-120); B2 Glycoprotein IgA <9 SAU (<=20); B2 Glycoprotein IgG <9 SGU (<=20); B2 Glycoprotein IgM <9 SMU (<=20); Lupus Anticoagulant Negative (Negative); Protein S Functional(Activity) 98 % (60-140)
== END 2018-06-18 11:58 | disposition home or self-care (01) | DRG 299 ==
LOC: ED 14:21 → 2N 16:41